=== PATIENT | female | born 1955 | race Caucasian/White ===

== ENCOUNTER 2019-04-08 06:25 | Day surgery (SDC) | payer OTHER ==
[~2019-04-08] VITALS: Ht 170.2 cm; Wt 70.3 kg
[~2019-04-08 06:25] MED LIST: ALEVE220 M1 PO; ALEVE220 MG PO; ALLEGRA ALLERG180 MG PO; CALCIUM + D SO1 EACH PO; HYDROCODON-ACE1 EA10 PO; HYDROCODON-ACE1 EA11 PO; IBUPROFEN600 MG PO; MAPAP325 MG PO; MULTIVITAMINS1 EAC8 PO; PROBIOTIC1 EAC1 PO
--- NOTE | 2019-04-08 07:07 | NUR ---
ALL CHARTING COMPLETED BY KEVEN PENA, SURGERY NURSE WAS OBSERVED AND APPROVED BY THIS RN.
--- NOTE | 2019-04-08 08:04 | NUR ---
PT ALERT, ORIENTED AND SEEMS RELAXED ABOUT TODAY-JUST SOMETHING WE HAVE TO DO. PT DID MENTIONED THAT SHE IS STARTING A NEW JOB, BUT SEEMS TO BE TAKING THINGS IN STRIDE. PT REQUESTED PRAYER, WILL FOLLOW NEEDED
--- NOTE | 2019-04-08 08:36 | NUR ---
04/08/19 0836 Gabriela Vanessa 0828 PT ARRIVED AWAKE AND TALKING TO RN. PT DENIES PAIN AND NAUSEA. PT SITTING IN SEMI FOLWERS. PLAN OF CARE DISCUSSED. RESP EVEN AND UNLABORED.
--- NOTE | 2019-04-09 11:42 | OR ---
[facility] [address] [place], [place] [address] Signed DATE OF OPERATION: 04/08/2019 SURGEON: Jorge Luis London MD PREOPERATIVE DIAGNOSIS: History of hyperplastic polyps in 2016. POSTOPERATIVE DIAGNOSIS: Multiple polyps, all sigmoid and rectosigmoid. PROCEDURE: Total colonoscopy to cecum with mucosal lift polypectomy x2, hot snare polypectomy x1, and cold morcellation polypectomy x2. ANESTHESIA: Intravenous sedation, fentanyl 100 mcg, Versed 6 mg. INDICATION: This 63-year-old white woman is a patient of Clementina Sanchez. She recently underwent excision of a lipoma of her neck by me. She is due for surveillance colonoscopy having undergone colonoscopy in 2016 showing 4 polyps. They are all hyperplastic. She has no symptoms currently. She is admitted at this time to undergo colonoscopy. She understands the risks of bleeding, infection, perforation, and findings. The prep was good. Complete colonoscopy was undertaken to the cecum without question. 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 There were at least 5 polyps between the sigmoid and rectosigmoid. All of them were excised with combination of techniques. DESCRIPTION OF PROCEDURE: The patient was brought to the endoscopy suite, placed in lateral decubitus position, and given intravenous sedation to the point of slurred speech and nystagmus. Digital rectal examination was normal. Olympus video colonoscope was passed in the rectum and manipulated throughout the colon noting a larger polyp in the area of about 30 [address] The scope was ultimately advanced to the cecum. The ileocecal valve was normal as was the appendiceal orifice. The scope was withdrawn from that point. A small arteriovenous malformation was noted at the hepatic flexure and it was left in situ. Further withdrawal of scope showed no sign of abnormality until approximately 30 cm from the anal canal. There were 2 polyps, both of them sessile, somewhat larger than usual. Using a mucosal lift Electronically Signed By: JORGE LUIS LONDON MD 04/09/19 1142 PATIENT NAME: KG MOREAU OPERATIVE REPORT DATE OF : 57 REPORT #: [id number] PHYSICIAN: JORGE LUIS LONDON MD PCP: CLEMENTINA SANCHEZ PAC REPORT IS CONFIDENTIAL AND NOT TO BE RELEASED WITHOUT AUTHORIZATION [facility] [address] [place] [address] Signed technique including spot endoscopic tattoo, snare polypectomy was undertaken, both were secured with hemoclips for mucosal apposition. Further withdrawal showed two other small polyps, one of them pedunculated, one was excised with hot snare polypectomy technique and the other with cold morcellation technique. Further withdrawal showed a polyp at about 15 cm, similarly excised. The scope was withdrawn, removed, and the patient was taken to recovery room in good condition. CONCLUDING DIAGNOSIS: Multiple polyps. PLAN: Likely, we will need repeat colonoscopy sooner than 5 to 8 years. I would recommend to see me back in a few weeks and we will review her pathology and then plan going forward based on pathology. MD DRAKE Jolly/FLORIN /[id number] Copies: ~ Electronically Signed By: JORGE LUIS LONDON MD 04/09/19 1142 PATIENT NAME: KG MOREAU KATARZYNA OPERATIVE REPORT DATE OF : 57 REPORT #: [id number] PHYSICIAN: JORGE LUIS LONDON MD PCP: CLEMENTINA SANCHEZ PAC REPORT IS CONFIDENTIAL AND NOT TO BE RELEASED WITHOUT AUTHORIZATION
== END 2019-04-08 09:02 | disposition home or self-care (01) ==
LOC: OPS 06:25 → DS 06:25 → OPS 06:45
PROVIDERS: Surgery
PROC: 0DBM8ZZ Excision of Descending Colon, Via Natural or Artificial Opening Endoscopic (ICD-10-PCS; 2019-04-08)
PROC: 0DBN8ZZ Excision of Sigmoid Colon, Via Natural or Artificial Opening Endoscopic (ICD-10-PCS; 2019-04-08)
PROC: 3E0H8GC Introduction of Other Therapeutic Substance into Lower GI, Via Natural or Artificial Opening Endoscopic (ICD-10-PCS; principal; 2019-04-08 06:45)
DX: Z12.11 Encounter for screening for malignant neoplasm of colon (principal); K63.5 Polyp of colon; F17.210 Nicotine dependence, cigarettes, uncomplicated; Z86.010 Personal history of colon polyps
CPT/HCPCS: 99153; G0500; J2250; J3010; J7120

== ENCOUNTER 2024-07-01 06:14 | Day surgery (SDC) | payer MEDICARE, OTHER ==
[~2024-07-01] VITALS: Ht 170.2 cm; Wt 79.5 kg
[~2024-07-01 06:14] MED LIST changes: -ALEVE220 M1 PO; -ALEVE220 MG PO; -ALLEGRA ALLERG180 MG PO; -CALCIUM + D SO1 EACH PO; -HYDROCODON-ACE1 EA10 PO; -HYDROCODON-ACE1 EA11 PO; -IBUPROFEN600 MG PO; -MAPAP325 MG PO; +MIDAZOLAM HCL 5 MG/5 ML VIAL IV PRN; -MULTIVITAMINS1 EAC8 PO; -PROBIOTIC1 EAC1 PO; +fentaNYL citrate 100 MCG/2 ML VIAL IV PRN
[2024-07-01] MEDS ORDERED: MIDAZOLAM HCL 5 MG/5 ML VIAL ONE (06:38)
[2024-07-01] MEDS ORDERED: fentaNYL citrate 100 MCG/2 ML VIAL ONE (06:39)
[2024-07-01] MEDS ORDERED: LACTATED RINGER'S 1,000 ML IV SCH (07:00)
[2024-07-01] MEDS ORDERED: IBLOOD GLUCOSE TEST STRIP 1 EA TEST VI PRN (07:00)
[2024-07-01] MEDS ORDERED: LIDOCAINE HCL 1% 5 ML SDV INJ ONE (07:00)
--- NOTE | 2024-07-01 08:26 | NUR ---
07/01/24 0826 Gabriela Vanessa 0832 PT ARRIVED TO PACU ON 2L VIA NC, PT ASLEEP AND WAKES EASILY TO VERBAL STIMULI AND IS ENCOUARGED TO PASS GAS NEEDED. PLAN OF CARE DISCUSSED AND PT EASILY FALLS BACK TO SLEEP. RESP EVEN AND UNLABORED.
[2024-07-01 08:40] VITALS: BP 126/74
--- NOTE | 2024-07-03 11:05 | OR ---
[facility] [address] [place], [place] [address] Signed DATE OF OPERATION: 07/01/2024 SURGEON: Jorge Luis London MD PREOPERATIVE DIAGNOSIS: History of colonic polyps, last colonoscopy 2018. POSTOPERATIVE DIAGNOSES: 1. Polyps x2, sigmoid and rectum. 2. Appendiceal orifice mild inflammation and hyperplasia. 3. Submucosal lipoma, proximal right colon. PROCEDURE: Total colonoscopy to cecum with cold morcellation polypectomy x2. ANESTHESIA: Intravenous sedation, fentanyl 150 mcg and Versed 5 mg. INDICATION: This 68-year-old white woman is a patient of MARCY Bryson and well known to me from the past. She underwent colonoscopy in 2015, at which time she had four polyps excised. Follow up colonoscopy in 2019 showed additional polyps of the sigmoid and left colon. Though she is asymptomatic and has no family history of colon cancer. She is admitted for surveillance colonoscopy at this time. The risk of bleeding, infection, and perforation were reviewed with her, she understands and wished to proceed. FINDINGS: The prep was quite good. Complete colonoscopy was undertaken to the cecum. There was mild inflammation of the appendiceal orifice and hypertrophy of the mucosa, which was biopsied. A submucosal lipoma was noted in the proximal ascending colon. In the sigmoid and in the rectum were two small polyps, both excised completely. There were no other findings of concern. Endomark tattoo dye was noted in the area of the left colon from prior polypectomy. PROCEDURE IN DETAIL: The patient was brought to the endoscopy suite and placed in lateral decubitus position and given intravenous sedation to the point of slurred speech and nystagmus. Digital rectal examination was normal. An Olympus video colonoscope was passed in the rectum and manipulated throughout the Electronically Signed By: JORGE LUIS LONDON MD 07/03/24 1105 PATIENT NAME: KG MOREAU OPERATIVE REPORT DATE OF : 57 REPORT #: [id number] PHYSICIAN: JORGE LUIS LONDON MD PCP: ANDRES ABBASI REPORT IS CONFIDENTIAL AND NOT TO BE RELEASED WITHOUT AUTHORIZATION [facility] [address] [place], [place] [address] Signed colon ultimately intubating the cecum, at the appendiceal orifice was an area of hypertrophy and inflammation. Biopsies were obtained to assess for occult adenomatous change. The scope was withdrawn. In the proximal ascending colon a smooth submucosal mass was noted. Application of biopsy forceps to it showed it to be soft and pillow like very much consistent with a submucosal lipoma. It was not excised for biopsy. The scope was then withdrawn further ultimately finding in the sigmoid, a small polyp, which was excised with cold morcellation technique. Further withdrawal allowed for visualization of another small polyp of the low rectum. It too was excised with cold morcellation technique. Retroflexed view was otherwise normal. The scope was removed and the patient was taken recovery room in good condition. CONCLUDING DIAGNOSIS: 1. Polyps x2, excised. 2. Appendiceal orifice inflammation, possible hypertrophy. 3. Proximal ascending colon submucosal lipoma, asymptomatic. PLAN: We would recommend repeat colonoscopy in 5 years. She will return to the ongoing care of MARCY Bryson. MD DRAKE Jolly/MODL /[id number] Copies: ~ Electronically Signed By: JORGE LUIS LONDON MD 07/03/24 1105 PATIENT NAME: KG MOREAU SAGE OPERATIVE REPORT DATE OF : 57 REPORT #: [id number] PHYSICIAN: JORGE LUIS LONDON MD PCP: ANDRES ABBASI REPORT IS CONFIDENTIAL AND NOT TO BE RELEASED WITHOUT AUTHORIZATION
--- NOTE | 2024-07-03 17:16 | PATH ---
[facility] [address] [place], [place] [address] Signed SPECIMEN(S): A APPENDICEAL ORIFICE BIOPSY SPECIMEN(S): B SIGMOID POLYP SPECIMEN(S): C SIGMOID POLYP SPECIMEN SOURCE: A. APPENDICEAL ORIFICE BIOPSY B. SIGMOID POLYP C. SIGMOID POLYP CLINICAL HISTORY: Pre: History of hyperplastic polyps. Post: Polyps x2. FINAL PATHOLOGIC DIAGNOSIS: A. Appendiceal orifice biopsy: - Serrated polyp/adenoma (two fragments). B. Sigmoid polyp: - Hyperplastic polyp (two fragments). C. Sigmoid polyp: - Hyperplastic polyp (two fragments). JVR:clv MICROSCOPIC EXAMINATION: Histologic sections of all submitted blocks are examined by light microscopy. These findings, together with the gross examination, support the pathologic diagnosis. GROSS DESCRIPTION: A. The specimen, labeled and designated "Desler, V, appendiceal orifice biopsy," is received in formalin and consists of two kendall soft tissue fragments, ranging from 0.3-0.5 cm. Entirely submitted in (A1). B. The specimen, labeled and designated "Desler, V, sigmoid polyp," is received in formalin and consists of two kendall soft tissue fragments, ranging from 0.2-0.5 cm. Entirely submitted in (B1). C. The specimen, labeled and designated "Desler, V, sigmoid polyp," is received in formalin and consists of three kendall soft tissue fragments, ranging from 0.2-0.5 cm. Entirely submitted in (C1). HS (under the direct supervision of a pathologist) The Gross Description was prepared using a voice recognition system. The report was reviewed for accuracy; however, sound-alike word errors, addition and/or deletions may occur. If there is any PATIENT NAME: KG MOREAU PATHOLOGY DATE OF : 57 REPORT #: [id number] PHYSICIAN: AILYN LUCIANO PCP: ANDRES ABBASI REPORT IS CONFIDENTIAL AND NOT TO BE RELEASED WITHOUT AUTHORIZATION [facility] [address] [place], [place] [address] Signed question about this report, please contact Client Services. ADDITIONAL NOTES: Immunohistochemical and/or in situ hybridization studies if performed in this case included appropriate positive controls that reacted as expected. This test was developed and its performance characteristics determined by [facility]. It has not been cleared or approved by the U.S. Food and Drug Administration. The FDA has determined that such clearance or approval is not necessary. This test is used for clinical purposes. It should not be regarded as investigational or for research. [facility] is certified under the Clinical Laboratory Improvement Amendments of 1988 (CLIA) as qualified to perform high complexity clinical laboratory testing. PERFORMING LABORATORY: Technical component was performed by [facility], [address] [place] [id number] (CLIA# [id number]). Professional interpretation was performed by [facility] - [facility], [address] [place] [address], [place] [address] (CLIA#: [id number]). Diagnostician: Sadi Lane MD Pathologist Electronically Signed 07/03/2024 Copies: ~ PATIENT NAME: KG MOREAU KATARZYNA PATHOLOGY DATE OF : 57 REPORT #: [id number] PHYSICIAN: AILYN PATHOLOGY PCP: ANDRES ABBASI REPORT IS CONFIDENTIAL AND NOT TO BE RELEASED WITHOUT AUTHORIZATION
== END 2024-07-01 08:52 | disposition home or self-care (01) ==
LOC: DS 06:14 → OPS 06:14 → DS 07:30 → OPS 08:52
PROVIDERS: ATTEND Surgery
PROC: 0DBP8ZZ Excision of Rectum, Via Natural or Artificial Opening Endoscopic (ICD-10-PCS; principal; 2024-07-01)
PROC: 0DBN8ZZ Excision of Sigmoid Colon, Via Natural or Artificial Opening Endoscopic (ICD-10-PCS; 2024-07-01)
DX: Z12.11 Encounter for screening for malignant neoplasm of colon (principal); D12.1 Benign neoplasm of appendix; K63.5 Polyp of colon; K62.1 Rectal polyp; D17.79 Benign lipomatous neoplasm of other sites; M23.309 Other meniscus derangements, unspecified meniscus, unspecified knee
CPT/HCPCS: 88305; 99153; G0500; J2250; J3010; J7121

== ENCOUNTER 2025-06-06 06:32 | Day surgery (SDC) | payer MEDICARE, OTHER ==
[~2025-06-06] VITALS: Ht 170.2 cm; Wt 78.2 kg
--- NOTE | ~2025-06-06 | OR ---
[facility] [address] [place], [place] [address] Draft DATE OF OPERATION: 06/06/2025 SURGEON: Jorge Luis London MD PREOPERATIVE DIAGNOSIS: History of serrated adenoma, appendiceal orifice. POSTOPERATIVE DIAGNOSES: 1. Normal-appearing appendiceal orifice. 2. Hyperplastic polyps rectosigmoid. 3. Small lipoma (submucosal) right colon and minimal diverticula of sigmoid. PROCEDURES: 1. Total colonoscopy to cecum with multiple blind biopsies, appendiceal orifice. 2. Cold morcellation polypectomy x4, rectosigmoid hyperplastic polyps. ANESTHESIA: Intravenous sedation, fentanyl 100 mcg, and Versed 5 mg. INDICATION: This 69-year-old woman is a patient of MACY Jacques and underwent colonoscopy by me where she was found to have a serrated adenoma in the appendiceal orifice. Options of management have been reviewed including appendectomy with portion of cecum excision versus repeat colonoscopy with appendiceal orifice evaluation and biopsy to assure clearance of the polyp. She prefers the latter. Risks of colonoscopy including, but not limited to bleeding, infection, and perforation were reviewed. She understands, wished to proceed. FINDINGS: The prep was good. Complete colonoscopy was undertaken of the cecum. The appendiceal orifice was identified and showed no sign of abnormality. Multiple blind biopsies were taken of the appendiceal orifice and lumen. There was a soft submucosal lipoma in the right colon and several hyperplastic appearing polyps of the rectosigmoid, which were excised. There was a diverticulum of the sigmoid as well, not far from Endo annika tattoo dye. DESCRIPTION OF PROCEDURE: The patient was brought to the endoscopy suite and placed in lateral decubitus position, given intravenous sedation to the point of slurred speech and nystagmus. Digital rectal examination was normal. PATIENT NAME: KG MROEAU OPERATIVE REPORT DATE OF : 57 REPORT #: [id number] PHYSICIAN: JORGE LUIS LONDON MD PCP: FRED BELLO PAC REPORT IS CONFIDENTIAL AND NOT TO BE RELEASED WITHOUT AUTHORIZATION [facility] [address] [place], [place] [address] Draft An Olympus video colonoscope was passed in the rectum and manipulated visualizing several hyperplastic polyps of the rectosigmoid. Four in total were excised. Scope was then advanced beyond this showing a diverticulum of the sigmoid nearby Endo annika tattoo dye. The scope was advanced further ultimately to the cecum. Ileocecal valve and appendiceal orifice were identified. Appendiceal orifice was normal in its appearance. Multiple biopsies were taken of that area both blindly and with the direct visualization to assure there was no residual serrated adenoma from previous colonoscopy. The scope was withdrawn and a soft lipoma was noted in submucosal right mid colon. The "pillow" test affirmed this as a benign lipoma. The scope was then withdrawn further and remaining colon was normal except for findings as described. Retroflexed view was normal. Scope was removed. The patient was taken to recovery room in good condition. CONCLUDING DIAGNOSES: 1. No apparent evidence of residual serrated adenoma in appendiceal orifice. 2. Hyperplastic polyps rectosigmoid. 3. Submucosal lipoma, right colon. 4. Diverticula of sigmoid. PLAN: Recommend repeat colonoscopy in 5-7 years if pathology for the appendiceal orifice is negative. If stool with adenoma, would recommend extended appendectomy laparoscopically for definitive resection of serrated adenoma of appendiceal orifice. MD DRAKE Jolly/FLORIN /[id number] cc: MACY Jacques Copies: ~ PATIENT NAME: KG MOREAU OPERATIVE REPORT DATE OF : 57 REPORT #: [id number] PHYSICIAN: JORGE LUIS LONDON MD PCP: FRED BELLO PAC REPORT IS CONFIDENTIAL AND NOT TO BE RELEASED WITHOUT AUTHORIZATION
[~2025-06-06 06:32] MED LIST changes: +ALEVE220 M1 PO; +ALEVE220 MG PO; +ALLEGRA ALLERG180 MG PO; +CALCIUM + D SO1 EACH PO; +FLONASE ALLERG9.9 ML NAS; +HYDROCODON-ACE1 EA10 PO; +HYDROCODON-ACE1 EA11 PO; +IBUPROFEN600 MG PO; +MAPAP325 MG PO; +MULTIVITAMINS1 EAC8 PO; +PROBIOTIC1 EAC1 PO
[2025-06-06] MEDS ORDERED: MIDAZOLAM HCL 5 MG/5 ML VIAL ONE (06:41)
[2025-06-06] MEDS ORDERED: fentaNYL citrate 100 MCG/2 ML VIAL ONE (06:41)
[2025-06-06] MEDS ORDERED: LIDOCAINE HCL 1% 5 ML SDV INJ ONE (07:00)
[2025-06-06] MEDS ORDERED: IBLOOD GLUCOSE TEST STRIP 1 EA TEST VI PRN (07:00)
[2025-06-06] MEDS ORDERED: LACTATED RINGER'S 1,000 ML IV SCH (07:00)
[2025-06-06 07:10] VITALS: BP 111/59
[2025-06-06 08:38] VITALS: BP 126/74
--- NOTE | 2025-06-06 09:01 | NUR ---
06/06/25 0901 Marina Orellana 0810-PT ARRIVES TO PACU, VIA STRETCHER, PT RESTING ON LT SIDE, PT A+O X4, DENIES PAIN OR NAUSEA, VSS ON 3L VIA NC, PT ENCOURAGED TO PASS GAS. 0815-PT TITRATED TO RA, VS REMAIN STABLE. PT SITTING UP IN BED SIPPING ON WATER. 0835-PT SITTING UP ON SIDE OF BED, DRESSING INDEPENDENTLY, IV REMOVED. 0848-PT GIVEN DISCHARGE INSTRUCTIONS AND PAPERWORK, ALL QUESTIONS ANSWERED, AND UNDERSTANDING VERBALIZED. PT DISCHARGED VIA W/C TO SON.
--- NOTE | 2025-06-10 12:14 | PATH ---
[facility] [address] [facility] [place], [place] [address] Signed SPECIMEN(S): A SIGMOID/RECTUM POLYP SPECIMEN(S): B COLON BIOPSY SPECIMEN SOURCE: A. SIGMOID/RECTUM POLYP B. COLON BIOPSY CLINICAL HISTORY: History of serrated adenoma, rectosigmoid-hypoplastic polyps, B) appendiceal orifice-rule out serrated adenoma FINAL PATHOLOGIC DIAGNOSIS: A. Sigmoid/rectum polyp: - Hyperplastic polyp (three fragments). B. Colon biopsy: - Benign colonic mucosa, negative for specific diagnostic abnormality. JVR:clv MICROSCOPIC EXAMINATION: Histologic sections of all submitted blocks are examined by light microscopy. These findings, together with the gross examination, support the pathologic diagnosis. GROSS DESCRIPTION: A. The specimen, labeled and designated "Desler, sigmoid/rectum polyp," is received in formalin and consists of three kendall soft tissue fragments, ranging from 0.2-0.3 cm. Entirely submitted in (A1). B. The specimen, labeled and designated "Desler, colon, appendiceal orifice biopsy," is received in formalin and consists of six kendall soft tissue fragments, ranging from 0.2-0.5 cm. Entirely submitted in (B1). VB (under the direct supervision of a pathologist) The Gross Description was prepared using a voice recognition system. The report was reviewed for accuracy; however, sound-alike word errors, addition and/or deletions may occur. If there is any question about this report, please contact Client Services. PERFORMING LABORATORY: Technical component was performed by [facility], [address] [place] [id number] (CLIA# [id number]). Professional interpretation was performed by [facility] - [place], [address] PATIENT NAME: KG MOREAU PATHOLOGY DATE OF : 57 REPORT #: [id number] PHYSICIAN: AILYN PATHOLOGY PCP: FRED BELLO PAC REPORT IS CONFIDENTIAL AND NOT TO BE RELEASED WITHOUT AUTHORIZATION [facility] [address] [place] [address] [address], [place] [address] (CLIA#: [id number]). Diagnostician: Sadi Lane MD Pathologist Electronically Signed 06/10/2025 Copies: ~ PATIENT NAME: KG MOREAU PATHOLOGY DATE OF : 57 REPORT #: [id number] PHYSICIAN: AILYN PATHOLOGY PCP: FRED BELLO PAC REPORT IS CONFIDENTIAL AND NOT TO BE RELEASED WITHOUT AUTHORIZATION
== END 2025-06-06 08:48 | disposition home or self-care (01) ==
LOC: OPS 06:32 → DS 06:32 → OPS 07:30 → DS 10:15
PROVIDERS: ATTEND Surgery
PROC: 0DBN8ZX Excision of Sigmoid Colon, Via Natural or Artificial Opening Endoscopic, Diagnostic (ICD-10-PCS; 2025-06-06)
PROC: 0DBF8ZX Excision of Right Large Intestine, Via Natural or Artificial Opening Endoscopic, Diagnostic (ICD-10-PCS; principal; 2025-06-06 07:30)
DX: D12.1 Benign neoplasm of appendix (principal); K62.1 Rectal polyp; K57.30 Diverticulosis of large intestine without perforation or abscess without bleeding; F17.200 Nicotine dependence, unspecified, uncomplicated; Z79.899 Other long term (current) drug therapy; Z80.3 Family history of malignant neoplasm of breast
CPT/HCPCS: 99153; G0500; J2250; J3010